=== PATIENT | male | born 1955 | race Caucasian/White ===

== ENCOUNTER 2017-10-05 05:25 | Emergency (ER) | payer MEDICAID ==
[~2017-10-05] VITALS: Ht 172.7 cm; Wt 90.7 kg
[2017-10-05 05:30] VITALS: BP_SYST 125
[2017-10-05] MEDS ORDERED: IPRATROPIUM/ALBUTEROL SULFATE 3 ML AMPUL.NEB INH ONE (05:45)
[2017-10-05] MEDS ORDERED: methylPREDNISolone SOD SUCC/PF 62.5 MG/ML VIAL IM ONE (06:00)
[2017-10-05 06:31] VITALS: BP_SYST 125
== END 2017-10-05 06:31 | disposition home or self-care (01) ==
LOC: SED 05:25
DX: J45.909 Unspecified asthma, uncomplicated (principal); R03.0 Elevated blood-pressure reading, without diagnosis of hypertension
CPT/HCPCS: 71010; 94640; 96372; 99283; J2930

== ENCOUNTER 2020-08-12 06:32 | Emergency (ER) | payer SELFPAY ==
[~2020-08-12] VITALS: Ht 172.7 cm; Wt 90.7 kg
[2020-08-12 06:55] VITALS: BP_SYST 128
--- NOTE | 2020-08-12 06:56 | NUR ---
Patient presented to ER C/O Right knee pain. Patient ambulatory to ER A&Ox4, pain 7/10 while bearing weight. Pt states he twisted right knee Sunday while at work.
--- NOTE | 2020-08-12 07:06 | NUR ---
ABEBE CANTRELL at bedside examining patient.
[2020-08-12] MEDS ORDERED: KETOROLAC TROMETHAMINE 60 MG/2 ML VIAL IM ONE (07:15)
--- NOTE | 2020-08-12 07:57 | NUR ---
PT TO ER BED 8 FROM
[2020-08-12 10:12] VITALS: BP_SYST 128
--- NOTE | 2020-08-12 10:13 | NUR ---
Patient given written and verbal discharge instructions and verbalizes understanding. ER MD discussed with patient the results and treatment provided. Patient in stable condition. ID arm band removed. Rx of Naprosyn given. Patient educated on pain management and to follow up with PMD. Pain Scale 0/10 . Opportunity for questions provided and answered. Medication side effect fact sheet provided.
== END 2020-08-12 10:13 | disposition home or self-care (01) ==
LOC: SED 06:32
DX: M76.9 Unspecified enthesopathy, lower limb, excluding foot (principal)
CPT/HCPCS: 73700; 96372; 99284; J1885

== ENCOUNTER 2020-08-29 08:50 | Emergency (ER) | payer SELFPAY ==
[~2020-08-29] VITALS: Ht 172.7 cm; Wt 90.7 kg
[2020-08-29 08:50] VITALS: BP_SYST 151
--- NOTE | 2020-08-29 08:50 | NUR ---
PLACED IN BED 5, TRIAGED AT BEDSIDE. DR. ESPINOSA AT BEDSIDE
[2020-08-29] MEDS ORDERED: DIPH-TET-PERTUS Vaccine 0.5 ML VIAL (ADACEL) I.M. ONE (09:00)
[2020-08-29] MEDS ORDERED: LIDOCAINE 1% 10 MG/ML, 20 ML MDV INJ ONE (09:00)
--- NOTE | 2020-08-29 09:00 | NUR ---
Patient AAO x 4 ambulates to ER bed 5 with c/o 8/10 throbbing pain and 3.5 cm laceration to R forehead s/p bumping it against rearview mirror on truck x 30 minutes ago. Drove self to emergency department. Denies dizziness and KO. Bleeding is controlled on arrival to [facility]. Even chest rise and fall with respirations. Will continue to monitor.
--- NOTE | 2020-08-29 09:10 | NUR ---
ER Dr. Carrillo at bedside examining patient/for laceration repair.
[2020-08-29] MEDS ORDERED: IBUPROFEN 800 MG TABLET PO ONE (09:15)
--- NOTE | 2020-08-29 09:15 | NUR ---
Dr. Condon repairing pt's head lac
[2020-08-29 09:24] VITALS: BP_SYST 151
--- NOTE | 2020-08-29 09:24 | NUR ---
Patient given written and verbal discharge instructions and verbalizes understanding. ER MD Dr. Carrillo discussed with patient the results and treatment provided. Patient in stable condition. ID arm band removed. No Rx given. Patient educated on pain management and to follow up with PMD. Pain Scale 7/10 with 800 mg Ibuprofen administered prior to discharge. Opportunity for questions provided and answered. Medication side effect fact sheet provided.
[2020-08-29] MEDS ORDERED: BACITRACIN 1 GM OINT TP ONE (09:28)
== END 2020-08-29 09:24 | disposition home or self-care (01) ==
LOC: SED 08:50
DX: S01.01XA Laceration without foreign body of scalp, initial encounter (principal); W25.XXXA Contact with sharp glass, initial encounter; Y93.89 Activity, other specified; Y92.89 Other specified places as the place of occurrence of the external cause; Y99.8 Other external cause status
CPT/HCPCS: 12002; 90471; 90715; 99283; J2001

== ENCOUNTER 2020-09-05 07:25 | Emergency (ER) | payer SELFPAY ==
[~2020-09-05] VITALS: Ht 172.7 cm; Wt 90.7 kg
--- NOTE | 2020-09-05 07:30 | NUR ---
Patient to ER bed 6 to gown for evaluation. Side rails up. Report given to KARLA Bernal.
--- NOTE | 2020-09-05 07:32 | NUR ---
Patient presented to ER C/O wound check. Patient A&Ox4, ambulatory to ER, skin has [address], skin dry, no redness, denies pain. Patient states he was seen at [facility] ER 7 days ago, 4 leta placed to right scalp.
[2020-09-05 07:33] VITALS: BP_SYST 120
--- NOTE | 2020-09-05 07:33 | NUR ---
ER Dr. Norris at bedside examining patient.
[2020-09-05 07:45] VITALS: BP_SYST 120
--- NOTE | 2020-09-05 07:45 | NUR ---
Patient given written and verbal discharge instructions and verbalizes understanding. ER MD discussed with patient the results and treatment provided. Patient in stable condition. ID arm band removed. No Rx given. Patient educated on pain management and to follow up with PMD. Pain Scale 0/10 . Opportunity for questions provided and answered. Medication side effect fact sheet provided.
== END 2020-09-05 07:45 | disposition home or self-care (01) ==
LOC: SED 07:25
DX: S01.01XD Laceration without foreign body of scalp, subsequent encounter (principal); Z48.02 Encounter for removal of sutures; W25.XXXD Contact with sharp glass, subsequent encounter
CPT/HCPCS: 99281

== ENCOUNTER 2022-02-20 21:26 | Emergency (ER) | payer MEDICAID ==
[~2022-02-20] VITALS: Ht 172.7 cm; Wt 86.2 kg
[2022-02-20 21:58] VITALS: BP_SYST 118
--- NOTE | 2022-02-20 22:06 | NUR ---
Patient triaged and placed in waiting room. VSS and patient appears in no acute distress at this time. Awaiting available bed, and MD notified of need for MSE.
--- NOTE | 2022-02-20 23:55 | NUR ---
Parient ambulatory to bed 2 for evaluation and treatment
[2022-02-21 00:40] LABS: BILIRUBIN,URINE NEGATIVE (NEGATIVE); CLARITY/URINE CLEAR (CLEAR); COLOR,URINE YELLOW (YELLOW); GLUCOSE,URINE NEGATIVE (NEGATIVE); KETONES,URINE NEGATIVE (NEGATIVE); LEUKOCYTE ESTERASE ,URINE NEGATIVE (NEGATIVE); NITRITE, URINE NEGATIVE (NEGATIVE); PROTEIN URINE NEGATIVE (NEGATIVE)
--- NOTE | 2022-02-21 00:40 | NUR ---
Pt C/O left lower back pain States he fell off a ladder AOX4 VSS Pt medicated
[2022-02-21 01:00] LABS: BLOOD, URINE TRACE (NEGATIVE)
--- NOTE | 2022-02-21 01:08 | NUR ---
DAVID Dover at bedside examining patient.
[2022-02-21] MEDS ORDERED: KETOROLAC TROMETHAMINE 60 MG/2 ML VIAL IM ONE (01:15)
[2022-02-21] MEDS ORDERED: KETOROLAC TROMETHAMINE 30 MG VIAL ONE (01:35)
[2022-02-21] MEDS ORDERED: NAPR-1172 PO (01:37)
[2022-02-21] MEDS ORDERED: CYCL10TA24 PO (01:37)
[2022-02-21 01:51] VITALS: BP_SYST 126
--- NOTE | 2022-02-21 01:56 | NUR ---
Patient given written and verbal discharge instructions and verbalizes understanding. ER MD discussed with patient the results and treatment provided. Patient in stable condition. ID arm band removed. Patient educated on pain management and to follow up with PMD. Pain Scale 1. Opportunity for questions provided and answered. Medication side effect fact sheet provided.
== END 2022-02-21 01:54 | disposition home or self-care (01) ==
LOC: SED 21:26
DX: M25.552 Pain in left hip (principal); M54.50 Low back pain, unspecified; W11.XXXA Fall on and from ladder, initial encounter; Y93.89 Activity, other specified; Y92.89 Other specified places as the place of occurrence of the external cause; Y99.8 Other external cause status
CPT/HCPCS: 72100; 72170; 73502; 81003; 96372; 99284; J1885